=== PATIENT | male | born 1945 | race Caucasian/White ===

== ENCOUNTER 2018-05-06 09:46 | Inpatient (IN) | payer MEDICARE, MEDICAID ==
--- NOTE | 2018-05-06 11:18 | RAD ---
HISTORY: SOB COMPARISONS: None VIEWS: 1: frontal portable view of the chest at 11:05 AM FINDINGS: LINES AND TUBES: None. CARDIOMEDIASTINAL SILHOUETTE: The cardiac silhouette is enlarged. The cardiomediastinal silhouette is otherwise normal for portable technique. PLEURA: The costophrenic angles are sharp. No pleural abnormalities are noted. LUNG PARENCHYMA: The lungs are clear. ABDOMEN: The upper abdomen is clear. There is no subphrenic gas. BONES AND SOFT TISSUES: The patient is status post median sternotomy. IMPRESSION: CARDIOMEGALY. NO ACTIVE CARDIOPULMONARY DISEASE.
[2018-05-06 11:30] LABS: Hematocrit 16 % (42-52); Hemoglobin 5.2 g/dl (14.0-18.0); Mean Corpuscular HGB Conc 32 g/dl (31-36); Mean Corpuscular Hemoglobin 28 pg (27-31); Mean Corpuscular Volume 88 fL (80-94); Mean Platelet Volume 9.7 um3 (7.4-10.4); Platelet Count 393 10^3/ul (150-450); Red Blood Count 1.88 10^6/ul (4.00-5.40); Red Cell Distribution Width 21 % (10.5-15); White Blood Count 23.5 10^3/ul (3.5-10.8)
[2018-05-06 11:40] LABS: INR 4.76 (0.77-1.02)
[2018-05-06 11:41] LABS: EGFR Non-African American 50.1 (>60)
[2018-05-06] MEDS ORDERED: NS 0.9% 1000 ML* 1,000 ML IV ONE (11:50)
[2018-05-06] MEDS ORDERED: Pantoprazole IV* 40 MG IV ONE (11:50)
[2018-05-06 12:19] LABS: ABS Basophils 0.2 10^3/ul (0-0.2); ABS Eosinophils 0 10^3/ul (0-0.6); ABS Lymphocytes 1.7 10^3/ul (1.0-4.8); ABS Monocytes 1.3 10^3/ul (0-0.8); ABS Neutrophils 20.3 10^3/ul (1.5-7.7); ABS Nucleated RBC 0.1 10^3/ul; Eosinophil % 0 % (0-6); Lymphocyte % 7.1 % (25-47); Nucleated Red Blood Cells % 0.4
[2018-05-06] MEDS ORDERED: Baclofen TAB* 10 MG PO PRN (12:25)
[2018-05-06] MEDS ORDERED: traZODone TAB* 100 MG PO PRN (12:25)
[2018-05-06] MEDS ORDERED: Acetaminophen TAB* 325 MG PO PRN (12:25)
[2018-05-06] MEDS ORDERED: Albuterol 2.5 MG/3 ML NEB.SOL* (0.083%) INH PRN (12:25)
[2018-05-06] MEDS ORDERED: Levalbuterol HFA INHALER* 1 PUFF MDI INH PRN (12:25)
[2018-05-06] MEDS ORDERED: Nitroglycerin TAB 0.4 MG* 0.4 MG TAB SL PRN (12:25)
[2018-05-06] MEDS ORDERED: traMADol TAB* 50 MG PO PRN (12:25)
[2018-05-06] MEDS ORDERED: Phytonadione IV (Adult)* 10 MG/ML 1 ML AMP IV ONE (14:00)
--- NOTE | 2018-05-06 14:15 | OP ---
Operative Report - Blank - Operative Report Date of Operation: 05/06/18 Note: Central Venous Catheter (CVC, Central Line) Placement Date: 05/06/18 Time: 2:20 PM Indication: Hemodynamic monitoring/Intravenous access Attending: Robert Ruiz time-out was completed verifying correct patient, procedure, site, positioning , and special equipment if applicable. The patient was placed in a dependent position appropriate for central line placement based on the vein to be cannulated. The patients right neck as prepped and draped in sterile fashion. 1 % Lidocaine was used to anesthetize the surrounding skin area. A triple lumen 7- Gambian catheter was introduced into the the internal jugular using the Seldinger technique and under ultrasound guidance. The catheter was threaded smoothly over the guide wire and appropriate blood return was obtained. Each lumen of the catheter was evacuated of air and flushed with sterile saline. The catheter was then sutured in place to the skin and a sterile dressing applied. Perfusion to the extremity distal to the point of catheter insertion was checked and found to be adequate. Estimated Blood Loss: none The patient tolerated the procedure well and there were no complications. A chest xray was ordered to confirm placement.
--- NOTE | 2018-05-06 14:38 | RAD ---
HISTORY: central line placement COMPARISONS: May 06, 2018 at 11:05 AM VIEWS: 1: frontal portable view of the chest at 2:16 PM. The patient is obliqued to the left. FINDINGS: LINES AND TUBES: A right internal jugular venous catheter is noted with the tip overlying the cavoatrial junction. CARDIOMEDIASTINAL SILHOUETTE: The cardiac silhouette is enlarged. The cardiomediastinal silhouette is otherwise normal for portable technique. PLEURA: The costophrenic angles are sharp. No pleural abnormalities are noted. There is no appreciable pneumothorax. LUNG PARENCHYMA: The lungs are clear. ABDOMEN: The upper abdomen is clear. There is no subphrenic gas. BONES AND SOFT TISSUES: The patient is status post median sternotomy. IMPRESSION: 1. LINES AND TUBES ABOVE. 2. CARDIOMEGALY.
[2018-05-06] MEDS: Pantoprazole IV* 80 MG in NS 0.9% 250 ML* 250 ML IV SCH (14:43)
[2018-05-06] MEDS ORDERED: NS 0.9% IVPB ONE (15:13)
[2018-05-06] MEDS ORDERED: Phytonadione IV (Adult)* 10 MG/ML 1 ML AMP ONE (15:13)
[2018-05-06] MEDS ORDERED: ERYTHROMYCIN LACTOBIONATE IVPB ONE (15:13)
[2018-05-06] MEDS: PHYTONADIONE IV ONE ×2 (15:18→18:01)
[2018-05-06] MEDS: NS 0.9% IV ONE ×2 (15:18→18:01)
[2018-05-06] MEDS ORDERED: Phytonadione IV (Adult)* 10 MG in NS 0.9% 50 ML* 50 ML IV ONE (15:36)
[2018-05-06] MEDS ORDERED: Metoclopramide IV* 5 MG/ML 2 ML VIAL IV SLOW PU ONE (15:37)
[2018-05-06] MEDS ORDERED: LORazepam INJ* 2 MG/ML 1 ML VIAL ONE (15:41)
--- NOTE | 2018-05-06 16:05 | HP ---
History of Present Illness - History of Present Illness Reason for Visit: black stool History of Present Illness: 72M with htn, hld, cad s/p cabg, afib on coumadin, h/o cva with residual left sided deficit, h/o gi bleed presents with weakness and black tarry stool. The patient has been occurring for the past several days. He also has some epigastric burning. He came to the ER and was found have a hemoglobin of 5. He was started on ppi gtt and admitted to the ICU. The patient arrived on the unit and approximately 800cc of coffee ground emesis. An NG tube was placed and an addition 1200cc of coffee ground contents were aspirated from the patients stomach. A central line was placed and 6 units of prbcs were ordered to be transfused. - Past Medical History Cardiac: AFIB, CAD, HTN, Hyperlipidemia Pulmonary: COPD [employer]: CVA, Other - parkinsons disease Gastrointestinal: GI bleed - Past Surgical History Past Surgical History: CABG - Past Family History Family History: None - Past Social History Smoke: Quit Alcohol: Rare Drugs: None Lives: With Family Review of Systems - Review of Systems Gastrointestinal: Positive: Melena Musculoskeletal: Positive: Arm Pain Neurological: Positive: Weakness - Medications/Allergies Allergies/Adverse Reactions: Allergies Allergy/AdvReac Type Severity Reaction Status Date / Time No Known Allergies Allergy Verified 05/06/18 09:59 Medications: Current Medications Acetaminophen (Tylenol Tab*) 650 mg PO BID PRN PRN Reason: PAIN Albuterol (Ventolin 2.5 Mg/3 Ml Neb.Kaitlynn*) 2.5 mg INH Q6H PRN PRN Reason: SOB/WHEEZING Albuterol (Ventolin Hfa Inhaler*) 2 puff INH Q6H PRN PRN Reason: SOB/WHEEZING Atorvastatin Calcium (Lipitor*) 20 mg PO DAILY TRISTA Baclofen (Lioresal Tab*) 10 mg PO TID PRN PRN Reason: SPASMS Carbidopa/Levodopa (Sinemet 25/100 Tab(*)) 1 tab PO TID TRISTA Divalproex Sodium (Depakote Er Tab(*)) 250 mg PO BID TRISTA Donepezil HCl (Aricept Tab*) 5 mg PO QPM TRISTA Fenofibrate (Tricor(Nf)) 160 mg PO DAILY TRISTA; Protocol Pantoprazole Sodium 80 mg/ (Sodium Chloride) 250 mls @ 25 mls/hr IV Q10H TRISTA Last Admin: 05/06/18 14:43 Dose: 25 mls/hr Phytonadione 10 mg/ Sodium (Chloride) 51 mls @ 100 mls/hr IV ONCE ONE Stop: 05/06/18 16:06 Levalbuterol HCl (Xopenex Hfa Inhaler*) 2 puff INH Q4H PRN PRN Reason: SHORTNESS OF BREATH Mometasone Furoate/Formoterol Fumar (Dulera 100/5 Mdi*) 1 puff INH BID [facility] Nitroglycerin (Nitroglycerin Tab 0.4 Mg*) 0.4 mg SL Q5M PRN PRN Reason: PAIN - CHEST Pramipexole Dihydrochloride (Mirapex Tab*) 0.25 mg PO BID [facility] Exam - Exam Vital Signs: Vital Signs (72 hours) 05/06/18 05/06/18 05/06/18 09:55 10:00 10:10 Temperature 98.1 F Pulse Rate 112 110 109 Respiratory 17 19 18 Rate Blood Pressure 118/55 118/57 (mmHg) O2 Sat by Pulse 94 95 94 Oximetry 05/06/18 05/06/18 05/06/18 10:25 10:40 11:29 Temperature Pulse Rate 107 106 108 Respiratory 20 20 Rate Blood Pressure 106/75 133/57 (mmHg) O2 Sat by Pulse 95 95 95 Oximetry 05/06/18 05/06/18 05/06/18 11:30 11:38 11:45 Temperature 97.6 F Pulse Rate 112 107 108 Respiratory 20 20 19 Rate Blood Pressure 115/54 115/54 126/61 (mmHg) O2 Sat by Pulse 95 96 94 Oximetry 05/06/18 05/06/18 05/06/18 12:00 12:15 12:41 Temperature Pulse Rate 103 107 115 Respiratory 18 18 20 Rate Blood Pressure 105/61 119/60 123/58 (mmHg) O2 Sat by Pulse 95 95 95 Oximetry 05/06/18 05/06/18 05/06/18 12:43 12:45 13:00 Temperature Pulse Rate Respiratory 19 24 18 Rate Blood Pressure 123/58 125/60 115/68 (mmHg) O2 Sat by Pulse Oximetry 05/06/18 05/06/18 05/06/18 13:29 13:30 13:36 Temperature 98.8 F Pulse Rate 106 111 111 Respiratory 17 17 22 Rate Blood Pressure 113/64 110/54 110/54 (mmHg) O2 Sat by Pulse 95 94 95 Oximetry 05/06/18 05/06/18 05/06/18 13:45 14:00 14:01 Temperature Pulse Rate 109 111 108 Respiratory 20 23 20 Rate Blood Pressure 125/60 133/58 (mmHg) O2 Sat by Pulse 98 100 100 Oximetry 05/06/18 05/06/18 14:10 15:47 Temperature 97.4 F Pulse Rate 112 Respiratory 20 14 Rate Blood Pressure 123/74 (mmHg) O2 Sat by Pulse 97 Oximetry General: Alert, Oriented x3, Other - Pale, diaphoretic HEENT: Atraumatic, EOMI Lungs: Clear to auscultation Cardiovascular: Normal S1, Normal S2, No murmurs Abdomen: Normal bowel sounds Extremities: No clubbing, No cyanosis, No edema Skin: No rashes, No breakdown Neurological: Normal speech, Cranial nerves 3-12 NL Psych/Mental Status: Mental status NL Assessment/Plan - Assessment/Plan Plan: 72M with htn, hld, cad c/p cabg, afib on coumadin, h/o cva, parkinsons presents with upper gi bleed Neuro - parkinsons - c/w sinnemet when able to tolerate po - divalproex/pramipexole for tremor - mentating well CV - htn, hld, afib, cad s/p cabg - hold ac in setting of gi bleed - afib, now in rvr 2/2 hemorrage - will start beta adriano or ccb if bp tolerates pulm - copd - no wheezing on exam - oxygenating well - nebulizers q4 prn GI - upper gi bleed - serial cbc - npo - ppi gtt - ngt to low intermittent suction - GI consult - Case discussed with Dr. Bartholomew Renal - [place] 2/2 hypoperfusion from volume depletion - iv hydration - monitor i/o, daily weights Heme - symptomatic anemia - transfuse 6 units prb - transfuse 2 units ffp - serial cbc Endo - - check fs, niss Lines - RIJ TLC (05/06/18) PPx - gi/dvt Full Code Critical Care Time: 90 minutes
[2018-05-06] MEDS: Carbidopa/Levodop 25/100 MG TAB(*) PO SCH ×2 (16:09→22:23)
--- NOTE | 2018-05-06 16:32 | HP ---
CC: Dr. Murphy in [place], [place], phone number is [phone]; Dr. Rajan * HISTORY AND PHYSICAL: DATE OF ADMISSION: 05/06/18 TIME OF EVALUATION: 12:15. PRIMARY CARE PROVIDER: Dr. Murphy. CONSULTING EMERGENCY PREPAREDNESS MANAGER: Dr. Rajan. CHIEF COMPLAINT: "I'm weak." HISTORY OF PRESENT ILLNESS: Mr. Triplett is a 72-year-old male with a past medical history of coronary artery disease, status post CABG; atrial fibrillation, on anticoagulation with warfarin; hypertension; CVA x4; seizure disorder; Parkinson's; COPD; hyperlipidemia; recurrent GI bleed, who has had a GI bleed of unclear etiology for some time. On 04/22/18, he underwent an upper endoscopy and it showed a Dieulafoy lesion with spurting bleeding and stigmata of recent bleeding on the greater curvature of the stomach. Fulguration with argon plasma was unsuccessful and 1 LigaSure was successfully placed on the greater curvature of the gastric antrum. Bleeding had stopped at the end of the procedure. The patient states that couple of days after the procedure, his warfarin was resumed and he traveled from [place] to [place] to visit family. He states that he was feeling well until couple days ago when he started to experience indigestion. Yesterday, he states he had to use a lot of Tums and he also felt weak. Last night, he started to have melena again and he originally wanted to return to [place], but his encouraged him to come to the emergency room as his symptoms were worsening and he was feeling weaker and dizzy. In the emergency room, he had a CBC that showed hemoglobin of 5.2 and the hospitalist service was called for evaluation. PAST MEDICAL HISTORY: 1. Coronary artery disease, status post CABG. 2. Atrial fibrillation, on warfarin. 3. COPD. 4. GI bleed secondary to Dieulafoy lesion as described above. 5. Hypertension. 6. Parkinsonism. 7. CVA x4 with residual left hemiparesis. 8. Hypertension. 9. Hyperlipidemia. 10. Seizure disorder. PAST SURGICAL HISTORY: Status post CABG. MEDICATION LIST: As follows: 1. Acetaminophen 650 mg p.o. b.i.d. as needed for pain or fever. 2. Albuterol 2.5 mg nebulized q.6 hours p.r.n. shortness of breath. 3. Albuterol HFA 2 puffs inhaled q.6 hours p.r.n. shortness of breath. 4. Amlodipine 5 mg p.o. daily. 5. Atorvastatin 20 mg p.o. daily. 6. Baclofen 10 mg p.o. t.i.d. as needed for spasms. 7. Sinemet 25/100 one tablet p.o. t.i.d. 8. Divalproex ER 250 mg p.o. b.i.d. 9. Donepezil 5 mg p.o. q.p.m. 10. Fenofibrate 160 mg p.o. daily. 11. Breo Ellipta 1 puff inhaled daily. 12. Hydrocortisone 2.5% topical b.i.d. as needed for rash. 13. Proctofoam-HC 1% per rectum daily as needed for hemorrhoids. 14. Levalbuterol HFA 1 to 2 puffs inhaled q.4 hours p.r.n. shortness of breath. 15. Lisinopril 5 mg p.o. daily. 16. Nitroglycerin 0.4 mg sublingual q.5 minutes p.r.n. chest pain, maximum 3 doses. 17. Pantoprazole 40 mg p.o. daily. 18. Potassium gluconate 99 mg p.o. daily. 19. Mirapex 0.25 mg p.o. b.i.d. 20. Tramadol 50 mg p.o. q.6 hours as needed for pain. 21. Trazodone 100 mg p.o. at bedtime as needed for insomnia. 22. Venlafaxine ER 37.5 mg p.o. daily. 23. Multivitamin 1 tablet p.o. daily. 24. Warfarin 7.5 mg p.o. daily alternating with 5 mg. 25. Sonata 10 mg p.o. at bedtime. ALLERGIES: No known drug allergies. FAMILY HISTORY: Reviewed and noncontributory. SOCIAL HISTORY: The patient is a smoker, but quit. There is no history of alcohol or drug abuse. Surrogate decision maker is his , Joann Triplett, phone number is [phone]. REVIEW OF SYSTEMS: A 14-point review of systems was performed and all the pertinent negative and positive findings are in the HPI. PHYSICAL EXAMINATION GENERAL: The patient is an elderly male, lying in the ED stretcher, in no acute distress. VITAL SIGNS: Temperature 97.4, heart rate is 112, oxygen saturation is 97% on room air, respiratory rate is 20, blood pressure is 123/74. HEENT: Pupils are equal. Pale mucous membranes. CHEST: Breath sounds bilaterally decreased in bases. CVS: Normal S1, S2. Irregularly irregular. ABDOMEN: Obese, soft, nontender, nondistended. Bowel sounds are present. EXTREMITIES: No edema. NEURO: He is alert, oriented x3. Able to move all 4 extremities, but he has mild left hemiparesis. LABORATORY AND IMAGING DATA: The patient had a CBC that showed WBC of 23.5, hemoglobin of 5.2, hematocrit of 16, platelets of 393 with 86% neutrophils. INR is 4.7. Chemistry showed a sodium of 140, potassium of 4.6, chloride of 103 , bicarb of 26, BUN of 84, creatinine of 1.4, glucose of 168, calcium of 10.5. Total bilirubin of 0.1, AST of 7, ALT of 4, alk phos of 13. Chest x-ray showed cardiomegaly with no active cardiopulmonary disease. ASSESSMENT AND PLAN: Mr. Triplett is a 72-year-old male with a past medical history of coronary artery disease, status post CABG; paroxysmal atrial fibrillation, on warfarin; chronic obstructive pulmonary disease; cerebrovascular accident; GI bleed with recent diagnosis of Dieulafoy lesion as described above; hypertension; hyperlipidemia; seizure disorder, who presented to the emergency room with complaints of weakness and melena, found to have severe anemia. 1. Severe anemia. Secondary to upper GI bleed. I suspect the patient is bleeding from the same Dieulafoy lesion again. He will be admitted to the intensive care unit. He will receive 2 PRBCs. I am going to monitor his H and H. 2. Upper GI bleed. Suspect secondary to Dieulafoy lesion. We will obtain further records from [facility] in [place], [place]. The patient will be admitted to the intensive care unit. He will receive a Protonix drip. GI consultation was already requested with Dr. Rajan. 3. Supratherapeutic INR. Considering the magnitude of this patient's bleeding , we are going to hold his warfarin and give him FFP. The patient and his understand that holding his warfarin and reversing his INR will put him at greater risk for cerebrovascular accident, but they accepted the risk. The patient's states "this is not the first time he bleed, we have been through this before." 4. Seizure disorder. We will continue Depakote. 5. Parkinsonism. We will continue Sinemet. 6. Chronic obstructive pulmonary disease. It is stable at this time. We will continue bronchodilators, inhaled steroids. 7. Systemic inflammatory response syndrome. The patient meets SIRS criteria with tachycardia and leukocytosis, but I believe this is just a stress reaction to his significant GI bleed and does not represent an infection. 8. DVT prophylaxis. The patient has a score of 3 on the DVT Prophylaxis Risk Assessment Guide, but pharmacological prophylaxis is contraindicated. The patient will have SCDs. 9. Code status is full. TIME SPENT: Approximately 45 minutes were spent with the patient and 's interview, medical records review, physical examination to complete this admission, more than half of this time was spent [id number] with the patient and coordination of care. [id number]/[facility] #: [id number] BONIFACIO
--- NOTE | 2018-05-06 16:32 | CONS ---
GASTROENTEROLOGY CONSULTATION DATE OF CONSULTATION: 05/06/2018. REQUESTING PHYSICIAN: Dr. Lee in the emergency room. PRIMARY CARE PHYSICIAN: Sylvaintaff. The physician is in [place]. REASON FOR CONSULT: Melena. HISTORY OF PRESENT ILLNESS: Mr. Triplett is a very pleasant, 72-year-old gentleman who is up here in [facility] for the past few days and developed melena starting yesterday. He has been having an ongoing work-up for anemia while at home. He has had an EGD and colonoscopy that were nondiagnostic, and then a capsule endoscopy which revealed a Dieulafoy's lesion of the stomach. The patient then had a repeat EGD on April 22 which revealed the Dieulafoy's lesion and it was cauterized. Three days later on April 25, his Coumadin was restarted. The patient has a history of A-fib and four CVA's. The patient was doing well, feeling weak and somewhat short of breath with dyspnea on exertion until yesterday when he developed black and tarry stools. He denies any nonsteroidals, aspirin, or any other nonsteroidal anti-inflammatories. He denies any hematemesis, no bright red blood per rectum, no abdominal pain, no fevers or chills. He does experience dyspnea on exertion and shortness of breath. He is thirsty. PAST MEDICAL HISTORY: Significant for A-fib, CVA's, depression, chronic back pain, anemia, hypertension, dementia, asthma, and hypercholesterolemia. PAST SURGICAL HISTORY: Tonsillectomy and cholecystectomy. MEDICATIONS: Lipitor, Fluticasone, Norvasc, Sinemet, Depakote, Aricept, Tricor , Xopenex, Prinivil, Nitroglycerin, Protonix, Ultram, Trazodone, Ventolin, Effexor, Coumadin 10 mg alternating with 5 mg. ALLERGIES: None. FAMILY HISTORY: Noncontributory. REVIEW OF SYSTEMS: Twelve systems were reviewed. Other than that mentioned in the HPI were unremarkable. PHYSICAL EXAM: General: Elderly-appearing male lying flat in bed. Alert, oriented, pleasant, fluent, pale and weak, lethargic. Vital Signs: Temperature 97.6, blood pressure 115/54, pulse 107. HEENT: Mucus membranes are moist without lesions, ulcers or exudate. Dentition is poor. Gums are pale. Heart: Irregular rate and rhythm, tachy. Lungs: Clear to auscultation. Distant breath sounds bilaterally. Abdomen: Obese. Positive bowel sounds. Soft, nontender, nondistended. No hepatosplenomegaly, masses, rebound, or guarding. Skin: Warm, dry, and pale. LABORATORY DATA: Of note, hemoglobin 5.2, platelets 393, white count 23.5; INR 4.76; BUN 84, creatinine 1.4. ASSESSMENT AND PLAN: This is a 72-year-old gentleman on Coumadin for A-fib and CVA's who had a known Dieulafoy on April 22 that was cauterized. His INR is now 4.72. That likely is contributed to his upper GI bleeding. I would recommend we reverse his INR. He also needs PRBC's given his hemoglobin of 5.2. Once he is properly resuscitated, which will likely be by tomorrow, we can perform another upper endoscopy for further evaluation. He should be on IV Protonix drip. We will follow along closely. [id number]/[facility] #: [id number] BONIFACIO
--- NOTE | 2018-05-06 16:55 | ED ---
Eric Padilla Angela, scribed for Freddy Lee MD on 05/06/18 at 1035 . GI/ HPI - HPI Summary HPI Summary: This pt is a 72 y/o male [facility] [place] [facility] [place]/o dark stools since 2 days ago. Pt reports not feeling well since last night. He states nausea and lightheadedness this morning. Per family members, pt had a hard time getting a full deep breath in. Pt denies any pain, abd pain, chest pain. He is in town visiting from [place]. Pt is currently on Coumadin. He states that he was hospitalized a couple of weeks ago in [place] for bleeding ulcers that were clamped. Coumadin was discontinued for 3-4 days. Pt was started on Coumadin again on April 18, per . reports pt had a transfusion [address] 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 PMHx includes atrial fibrillation, open heart surgery, CVA x4 with left sided deficit, GI bleed. Pt uses a walker to ambulate at baseline. - History of Current Complaint Chief Complaint: EDGIBleed Time Seen by Provider: 05/06/18 10:30 Stated Complaint: GI BLEED Hx Obtained From: Patient Onset/Duration: Started Days Ago - 2, Still Present Timing: Lasting Days - 2 Severity: Moderate Current Severity: None Pain Intensity: 0 - denies any pain Associated Signs and Symptoms: Positive: Nausea, Black Tarry Stool, Melena, Other: - SOB. Negative: Fever Aggravating Factor(s): Nothing Alleviating Factor(s): Nothing - Allergy/Home Medications Allergies/Adverse Reactions: Allergies Allergy/AdvReac Type Severity Reaction Status Date / Time No Known Allergies Allergy Verified 05/06/18 09:59 Home Medications: Home Medications Acetaminophen TAB* [Tylenol TAB*] 650 mg PO BID PRN 05/06/18 [History Confirmed 05/06/18] Albuterol 2.5MG/3ML (0.083%)* [Ventolin 2.5 MG/3 ML NEB.ABRIL*] 2.5 mg INH Q6H PRN 05/06/18 [History Confirmed 05/06/18] Albuterol HFA INHALER* [Ventolin HFA Inhaler*] 2 puff INH Q6H PRN 05/06/18 [ History Confirmed 05/06/18] Atorvastatin* [Lipitor*] 20 mg PO DAILY 05/06/18 [History Confirmed 05/06/18] Baclofen TAB* [Lioresal TAB*] 10 mg PO TID PRN 05/06/18 [History Confirmed 05/06] Carbidopa/Levodop 25/100 MG(*) [Sinemet 25/100 TAB(*)] 1 tab PO TID 05/06/18 [ History Confirmed 05/06/18] Divalproex ER TAB(*) [Depakote ER TAB(*)] 250 mg PO BID 05/06/18 [History Confirmed 05/06/18] Donepezil TAB* [Aricept 5 MG TAB*] 5 mg PO QPM 05/06/18 [History Confirmed 05/06] Fenofibrate(NF) [Tricor(NF)] 160 mg PO DAILY 05/06/18 [History Confirmed ] Fluticasone/Vilanterol MDI(NF) [Breo Ellipta MDI (NF)] 1 puff INH DAILY [History Confirmed 05/06/18] Hydrocortisone 2.5% CREAM(NF) 1 applic TOPICAL BID PRN 05/06/18 [History Confirmed 05/06/18] Hydrocortisone/Pramoxine [Proctofoam Hc 1-1 %] 1 aer SC DAILY PRN 05/06/18 [ History Confirmed 05/06/18] Levalbuterol HFA INHALER* [Xopenex Hfa Inhaler*] 1 - 2 puff INH Q4H PRN [History Confirmed 05/06/18] Lisinopril TAB* [Prinivil TAB*] 5 mg PO DAILY 05/06/18 [History Confirmed ] Nitroglycerin TAB 0.4 MG* 0.4 mg SL Q5M PRN 05/06/18 [History Confirmed 05/06/18 ] Pantoprazole TAB (NF) [Protonix TAB (NF)] 40 mg PO DAILY 05/06/18 [History Confirmed 05/06/18] Potassium Gluconate 99 mg PO DAILY 05/06/18 [History Confirmed 05/06/18] Pramipexole TAB* [Mirapex TAB*] 0.25 mg PO BID 05/06/18 [History Confirmed 05/06] Venlafaxine EXT RELEASE CAP* [Effexor Xr CAP*] 37.5 mg PO DAILY 05/06/18 [ History Confirmed 05/06/18] Vitamin THERAPEUTIC TAB* [Theragran TAB*] 1 tab PO DAILY 05/06/18 [History Confirmed 05/06/18] Warfarin TAB(*) [Coumadin TAB(*)] 5 mg PO QPM 05/06/18 [History Confirmed ] Warfarin TAB(*) [Coumadin TAB(*)] 10 mg PO QPM 05/06/18 [History Confirmed 05/06] Zaleplon (NF) [Sonata (NF)] 10 mg PO QPM 05/06/18 [History Confirmed 05/06/18] amLODIPine TAB* [Norvasc 5 mg TAB*] 5 mg PO DAILY 05/06/18 [History Confirmed ] traMADol TAB* [Ultram*] 50 mg PO Q6HR PRN 05/06/18 [History Confirmed 05/06/18] traZODone TAB* [Desyrel TAB*] 100 mg PO BEDTIME PRN 05/06/18 [History Confirmed 05/06/18] PMH/Surg Hx/FS Hx/Imm Hx Endocrine/Hematology History: Reports: Hx Anticoagulant Therapy - Coumadin Cardiovascular History: Reports: Hx Atrial Fibrillation, Hx Coronary Artery Disease, Other Cardiovascular Problems/Disorders - open heart surgery GI History: Reports: Hx Gastrointestinal Bleed, Hx Hiatal Hernia, Hx Ulcer Neurological History: Reports: Hx CVA - Surgical History Surgery Procedure, Year, and Place: Cholecystectomy. Tonsillectomy. CABG Infectious Disease History: No Infectious Disease History: Denies: Traveled Outside the [place] in Last 30 Days - Family History Known Family History: Negative: Hypertension, Diabetes - Social History Alcohol Use: None Substance Use Type: Reports: None Smoking Status (MU): Never Smoked Tobacco Review of Systems Negative: Fever, Chills Negative: Chest Pain Positive: Shortness Of Breath Gastrointestinal: Other - Dark stools Positive: Nausea. Negative: Abdominal Pain Neurological: Other - POS: lightheadedness All Other Systems Reviewed And Are Negative: Yes Physical Exam - Summary Physical Exam Summary: Appearance: The patient is well-nourished in no acute distress and in no acute pain. Skin: The skin is warm and dry. Skin is pale. HEENT: The head is normocephalic and atraumatic. The pupils are equal and reactive. The conjunctivae are pale and without drainage. Nares are patent and without drainage. Mouth reveals moist mucous membranes and the throat is without erythema and exudate. The external ears are intact. The ear canals are patent and without drainage. The tympanic membranes are intact. Neck: the neck is supple with full range of motion and non-tender. There are no carotid bruits. There is no neck vein distension. Respiratory: Chest is non-tender. Lungs have a little wheeze. Cardiovascular: Heart is borderline tachycardic. There is no murmur or rub auscultated. There is no peripheral edema and pulses are symmetrical and equal. Abdomen: The abdomen is soft and non-tender. There are normal bowel sounds heard in all four quadrants and there is no organomegaly palpated. Musculoskeletal: There is no back tenderness noted. Extremities are non-tender with full range of motion. There is good capillary refill. There is no peripheral edema or calf tenderness elicited. Neurological: Patient is alert and oriented to person, place and time. Psychiatric: The patient has an appropriate affect and does not exhibit any anxiety or depression. Triage Information Reviewed: Yes Vital Signs On Initial Exam: Initial Vitals Temp Pulse Resp BP Pulse Ox 98.1 F 111 18 118/55 94 05/06/18 09:55 05/06/18 09:55 05/06/18 09:55 05/06/18 09:55 05/06/18 09:55 Vital Signs Reviewed: Yes Diagnostics - Vital Signs Vital Signs Temp Pulse Resp BP Pulse Ox 05/06/18 09:55 98.1 F 111 18 118/55 94 - Laboratory Lab Results: Lab Results 05/06/18 05/06/18 05/06/18 Range/Units 11:08 11:08 11:08 WBC 23.5 H (3.5-10.8) 10^3/ul RBC 1.88 L (4.00-5.40) 10^6/ul Hgb 5.2 L* (14.0-18.0) g/dl Hct 16 L (42-52) % MCV 88 (80-94) fL MCH 28 (27-31) pg MCHC 32 (31-36) g/dl RDW 21 H (10.5-15) % Plt Count 393 (150-450) 10^3/ul MPV 9.7 (7.4-10.4) um3 Neut % (Auto) 86.6 H (38-83) % Lymph % (Auto) 7.1 L (25-47) % [place] % (Auto) 5.6 (0-7) % Eos % (Auto) 0 (0-6) % Baso % (Auto) 0.7 (0-2) % Absolute Neuts (auto) 20.3 H (1.5-7.7) 10^3/ul Absolute Lymphs (auto) 1.7 (1.0-4.8) 10^3/ul Absolute Monos (auto) 1.3 H (0-0.8) 10^3/ul Absolute Eos (auto) 0 (0-0.6) 10^3/ul Absolute Basos (auto) 0.2 (0-0.2) 10^3/ul Absolute Nucleated RBC 0.1 10^3/ul Nucleated RBC % 0.4 INR (Anticoag Therapy) 4.76 H (0.77-1.02) APTT 40.2 H (26.0-36.3) seconds Sodium 140 (135-145) mmol/L Potassium 4.6 (3.5-5.0) mmol/L Chloride 103 (101-111) mmol/L Carbon Dioxide 26 (22-32) mmol/L Anion Gap 11 (2-11) mmol/L BUN 84 H (6-24) mg/dL Creatinine 1.40 H (0.67-1.17) mg/dL Est GFR ( Amer) 60.6 (>60) Est GFR (Non-Af Amer) 50.1 (>60) BUN/Creatinine Ratio 60.0 H (8-20) Glucose 168 H (70-100) mg/dL Calcium 10.5 H (8.6-10.3) mg/dL Total Bilirubin 0.10 L (0.2-1.0) mg/dL AST 7 L (13-39) U/L ALT 4 L (7-52) U/L Alkaline Phosphatase 13 L (34-104) U/L Total Protein 5.2 L (6.4-8.9) g/dL Albumin 3.3 (3.2-5.2) g/dL Globulin 1.9 L (2-4) g/dL Albumin/Globulin Ratio 1.7 (1-3) Blood Type Antibody Screen Crossmatch 05/06/18 Range/Units 11:08 WBC (3.5-10.8) 10^3/ul RBC (4.00-5.40) 10^6/ul Hgb (14.0-18.0) g/dl Hct (42-52) % MCV (80-94) fL MCH (27-31) pg MCHC (31-36) g/dl RDW (10.5-15) % Plt Count (150-450) 10^3/ul MPV (7.4-10.4) um3 Neut % (Auto) (38-83) % Lymph % (Auto) (25-47) % Denton % (Auto) (0-7) % Eos % (Auto) (0-6) % Baso % (Auto) (0-2) % Absolute Neuts (auto) (1.5-7.7) 10^3/ul Absolute Lymphs (auto) (1.0-4.8) 10^3/ul Absolute Monos (auto) (0-0.8) 10^3/ul Absolute Eos (auto) (0-0.6) 10^3/ul Absolute Basos (auto) (0-0.2) 10^3/ul Absolute Nucleated RBC 10^3/ul Nucleated RBC % INR (Anticoag Therapy) (0.77-1.02) APTT (26.0-36.3) seconds Sodium (135-145) mmol/L Potassium (3.5-5.0) mmol/L Chloride (101-111) mmol/L Carbon Dioxide (22-32) mmol/L Anion Gap (2-11) mmol/L BUN (6-24) mg/dL Creatinine (0.67-1.17) mg/dL Est GFR ( Amer) (>60) Est GFR (Non-Af Amer) (>60) BUN/Creatinine Ratio (8-20) Glucose (70-100) mg/dL Calcium (8.6-10.3) mg/dL Total Bilirubin (0.2-1.0) mg/dL AST (13-39) U/L ALT (7-52) U/L Alkaline Phosphatase (34-104) U/L Total Protein (6.4-8.9) g/dL Albumin (3.2-5.2) g/dL Globulin (2-4) g/dL Albumin/Globulin Ratio (1-3) Blood Type A Positive Antibody Screen Negative Crossmatch See Detail Result Diagrams: 05/06/18 11:08 05/06/18 11:08 Lab Statement: Any lab studies that have been ordered have been reviewed, and results considered in the medical decision making process. - Radiology Chest XR Xray Interpretation: No Acute Changes - IMPRESSION: Cardiomegaly. No active cardiopulmonary disease. Dr. Lee has reviewed this report. Radiology Interpretation Completed By: Radiologist Re-Evaluation - Re-Evaluation First Eval Re-Evaluation Time: 12:01 Comment: Dr. Rajan, GI, in to see pt. GIGU Course/Dx - Course Course Of Treatment: Mr. Triplett presented with a concern for having black bowel movements for the last couple of days. 2 weeks ago he was admitted to a hospital in [place] with an upper GI bleed and was transfused 2 units. He underwent EGD which showed an ulcer that had some kind of surgical repair. He was restarted on his Coumadin about one week ago. He is on Coumadin for atrial fibrillation. He was noted to be mildly tachycardic with otherwise normal vital signs on arrival. He was pale with pale conjunctiva. He was typed and screened and IV was initiated. Hemoglobin returned quite low at 5. His INR was also elevated at 5.9. He was ordered a unit of FFP and 2 units of PRBCs and given IV Protonix as a bolus and drip as well as normal saline. Dr. Rajan party plan salesperson for GI was contacted and came to the emergency department to evaluate the patient. And he is being admitted by the hospitalist service. - Diagnoses Provider Diagnoses: Upper GI bleed - Physician Notifications Discussed Care Of Patient With: Indu Melendrez Time Discussed With Above Provider: 11:47 Instructed by Provider To: Other - I discussed pt care with Dr. Melendrez, hospitalist, who accepted pt for admission. - Critical Care Time Critical Care Time: 30-74 min Discharge - Sign-Out/Discharge Documenting (check all that apply): Discharge/Admit/Transfer - Admit - Discharge Plan Condition: Stable Disposition: ADMITTED TO [facility] - Billing Disposition and Condition Condition: STABLE Disposition: Admitted to [facility] The documentation as recorded by the Eric zuniga Angela accurately reflects the service I personally performed and the decisions made by me, Freddy Lee MD.
[2018-05-06] MEDS ORDERED: Furosemide IV* 10 MG/ML 2 ML VIAL (20 MG) IV ONE ×2 (19:00→22:00)
[2018-05-06] MEDS ORDERED: Phytonadione IV (Adult)* 10 MG/ML 1 ML AMP SUBCUT ONE (19:00)
[2018-05-06] MEDS ORDERED: Furosemide IV* 10 MG/ML 2 ML VIAL (20 MG) ONE (19:03)
[2018-05-06] MEDS: Donepezil TAB* 5 MG PO SCH (19:05)
[2018-05-06 20:28] LABS: Hematocrit 24 % (42-52); Hemoglobin 8.1 g/dl (14.0-18.0); Mean Corpuscular HGB Conc 33 g/dl (31-36); Mean Corpuscular Hemoglobin 28 pg (27-31); Mean Corpuscular Volume 85 fL (80-94); Mean Platelet Volume 9.7 um3 (7.4-10.4); Platelet Count 268 10^3/ul (150-450); Red Blood Count 2.88 10^6/ul (4.00-5.40); Red Cell Distribution Width 18 % (10.5-15); White Blood Count 21.8 10^3/ul (3.5-10.8)
[2018-05-06 20:34] LABS: INR 1.38 (0.77-1.02)
[2018-05-06 21:23] LABS: ABS Basophils 0 10^3/ul (0-0.2); ABS Neutrophils 17.4 10^3/ul (1.5-7.7); ABS Neutrophils 18.8 10^3/ul (1.5-7.7); Monocytes % 7 % (0-7)
[2018-05-06] MEDS: Divalproex ER TAB(*) 250 MG PO SCH (22:23)
[2018-05-06] MEDS: Pramipexole TAB* 0.125 MG PO SCH (22:23)
[2018-05-06] MEDS ORDERED: Furosemide IV* 10 MG/ML 2 ML VIAL (20 MG) IV PRN (23:00)
[2018-05-07] MEDS: Pantoprazole IV* 80 MG in NS 0.9% 250 ML* 250 ML IV SCH ×2 (00:47→10:52)
[2018-05-07 05:50] LABS: Hematocrit 23 % (42-52); Hemoglobin 7.5 g/dl (14.0-18.0); Mean Corpuscular HGB Conc 34 g/dl (31-36); Mean Corpuscular Hemoglobin 28 pg (27-31); Mean Corpuscular Volume 84 fL (80-94); Mean Platelet Volume 9.8 um3 (7.4-10.4); Platelet Count 220 10^3/ul (150-450); Red Blood Count 2.67 10^6/ul (4.00-5.40); Red Cell Distribution Width 17 % (10.5-15); White Blood Count 21.1 10^3/ul (3.5-10.8)
[2018-05-07 05:52] LABS: ABS Basophils 0.1 10^3/ul (0-0.2); ABS Eosinophils 0 10^3/ul (0-0.6); ABS Lymphocytes 1.2 10^3/ul (1.0-4.8); ABS Monocytes 1.4 10^3/ul (0-0.8); ABS Neutrophils 18.5 10^3/ul (1.5-7.7); ABS Nucleated RBC 0 10^3/ul
[2018-05-07 06:11] LABS: EGFR Non-African American 69.1 (>60)
[2018-05-07 06:16] LABS: Eosinophil % 0 % (0-6); Lymphocyte % 5.8 % (25-47); Nucleated Red Blood Cells % 0.2
[2018-05-07] MEDS ORDERED: Azithromycin IV(*) 250 MG in NS 0.9% 250 ML* 250 ML IVPB ONE (08:00)
[2018-05-07] MEDS: Mometasone/Formoter 100/5 MDI INH SCH ×2 (08:55→19:54)
[2018-05-07] MEDS ORDERED: Venlafaxine EXT RELEASE CAP* 37.5 MG PO SCH (09:00)
[2018-05-07] MEDS: Carbidopa/Levodop 25/100 MG TAB(*) PO SCH ×3 (09:02→21:16)
[2018-05-07] MEDS: Atorvastatin* 20 MG TAB PO SCH (09:02)
[2018-05-07] MEDS: CMC:Fenofibrate(NF) 160 MG TAB PO SCH (09:03)
[2018-05-07] MEDS: Pramipexole TAB* 0.125 MG PO SCH ×2 (09:03→21:17)
[2018-05-07] MEDS: Divalproex ER TAB(*) 250 MG PO SCH ×2 (09:03→21:16)
--- NOTE | 2018-05-07 09:38 | PN ---
Date of Service: 05/07/18 Critical Care Services: Interval History: 72M with htn, hld, cad c/p cabg, afib on coumadin, h/o cva, parkinsons presents with upper gi bleed. Initial hgb 5. 7/10: Given 6 units prbc yesterday with hgb increase from 5 to 7. 2 more units prbc ordered this AM. Vital Signs: Temp Pulse Resp BP SpO2 FiO2 100.0 F 109 19 123/52 97 05/07/18 09:01 05/07/18 09:01 05/07/18 09:01 05/07/18 09:01 05/07/18 09:01 Physical Exam: General: Alert, Oriented x3, Other - Pale, diaphoretic HEENT: Atraumatic, EOMI Lungs: Clear to auscultation Cardiovascular: Normal S1, Normal S2, No murmurs, +tachy Abdomen: Normal bowel sounds Extremities: No clubbing, No cyanosis, No edema Skin: No rashes, No breakdown Neurological: Normal speech, Cranial nerves 3-12 NL Psych/Mental Status: Mental status NL Fluid Balance (Past 24 Hours): I= O= Net Intake & Output 05/05/18 05/06/18 05/07/18 05/08/18 06:59 06:59 06:59 06:59 Intake Total 3058 Output Total 2935 300 Balance 123 -300 Weight 102.4 kg Intake: IV Fluids 1006 LR 928 NS 78 Medicated IV 344 GEN - Pantoprazole/ 344 Protonix Oral 240 Packed Cells 1181 Fresh Frozen Plasma 287 Output: NG Tube Drainage Amount 50 Urine 325 Alonso 2410 300 Straight Cath 150 Labs: Laboratory Results - last 24 hr 05/06/18 05/06/18 05/06/18 11:08 11:08 11:08 WBC 23.5 H RBC 1.88 L Hgb 5.2 L* Hct 16 L MCV 88 MCH 28 MCHC 32 RDW 21 H Plt Count 393 MPV 9.7 Neut % (Auto) 86.6 H Lymph % (Auto) 7.1 L Randall % (Auto) 5.6 Eos % (Auto) 0 Baso % (Auto) 0.7 Absolute Neuts (auto) 20.3 H Absolute Lymphs (auto) 1.7 Absolute Monos (auto) 1.3 H Absolute Eos (auto) 0 Absolute Basos (auto) 0.2 Absolute Nucleated RBC 0.1 Immature Gran % Neutrophils % Band Neutrophils % Lymphocytes % Monocytes % Eosinophils % Basophils % Myelocytes % Nucleated RBC % 0.4 Abs Neuts (Manual) Abs Lymphs (Manual) Abs Monocytes (Manual) Absolute Eos (Manual) Abs Basophils (Manual) Normal RBC Morphology INR (Anticoag Therapy) 4.76 H APTT 40.2 H Sodium 140 Potassium 4.6 Chloride 103 Carbon Dioxide 26 Anion Gap 11 BUN 84 H Creatinine 1.40 H Est GFR ( Amer) 60.6 Est GFR (Non-Af Amer) 50.1 BUN/Creatinine Ratio 60.0 H Glucose 168 H Calcium 10.5 H Total Bilirubin 0.10 L AST 7 L ALT 4 L Alkaline Phosphatase 13 L Total Protein 5.2 L Albumin 3.3 Globulin 1.9 L Albumin/Globulin Ratio 1.7 Blood Type Antibody Screen Crossmatch Donor Unit # Post-Trans Blood Type Post-Trans JASS 05/06/18 05/06/18 05/06/18 11:08 20:09 20:09 WBC RBC Hgb Hct MCV MCH MCHC RDW Plt Count MPV Neut % (Auto) Lymph % (Auto) Randall % (Auto) Eos % (Auto) Baso % (Auto) Absolute Neuts (auto) Absolute Lymphs (auto) Absolute Monos (auto) Absolute Eos (auto) Absolute Basos (auto) Absolute Nucleated RBC Immature Gran % Neutrophils % Band Neutrophils % Lymphocytes % Monocytes % Eosinophils % Basophils % Myelocytes % Nucleated RBC % Abs Neuts (Manual) Abs Lymphs (Manual) Abs Monocytes (Manual) Absolute Eos (Manual) Abs Basophils (Manual) Normal RBC Morphology INR (Anticoag Therapy) 1.38 H APTT Sodium Potassium Chloride Carbon Dioxide Anion Gap BUN 73 H Creatinine 1.18 H Est GFR ( Amer) 73.8 Est GFR (Non-Af Amer) 61.0 BUN/Creatinine Ratio Glucose Calcium Total Bilirubin AST ALT Alkaline Phosphatase Total Protein Albumin Globulin Albumin/Globulin Ratio Blood Type A Positive Antibody Screen Negative Crossmatch See Detail Donor Unit # Post-Trans Blood Type Post-Trans JASS 05/06/18 05/06/18 05/07/18 20:09 20:19 05:30 WBC 21.8 H 21.1 H RBC 2.88 L 2.67 L Hgb 8.1 L 7.5 L Hct 24 L 23 L MCV 85 84 MCH 28 28 MCHC 33 34 RDW 18 H 17 H Plt Count 268 220 MPV 9.7 9.8 Neut % (Auto) Not Reportable 87.5 H Lymph % (Auto) Not Reportable 5.8 L Randall % (Auto) Not Reportable 6.4 Eos % (Auto) Not Reportable 0 Baso % (Auto) Not Reportable 0.3 Absolute Neuts (auto) 18.8 H 18.5 H Absolute Lymphs (auto) Not Reportable 1.2 Absolute Monos (auto) Not Reportable 1.4 H Absolute Eos (auto) Not Reportable 0 Absolute Basos (auto) Not Reportable 0.1 Absolute Nucleated RBC Not Reportable 0 Immature Gran % 6 Neutrophils % 80 Band Neutrophils % 5 Lymphocytes % 6 L Monocytes % 7 Eosinophils % 1 Basophils % 0 Myelocytes % 1 Nucleated RBC % Not Reportable 0.2 Abs Neuts (Manual) 17.4 H Abs Lymphs (Manual) 1.3 Abs Monocytes (Manual) 1.5 H Absolute Eos (Manual) 0.2 Abs Basophils (Manual) 0 Normal RBC Morphology Normal INR (Anticoag Therapy) APTT Sodium Potassium Chloride Carbon Dioxide Anion Gap BUN Creatinine Est GFR ( Amer) Est GFR (Non-Af Amer) BUN/Creatinine Ratio Glucose Calcium Total Bilirubin AST ALT Alkaline Phosphatase Total Protein Albumin Globulin Albumin/Globulin Ratio Blood Type Antibody Screen Crossmatch Donor Unit # See comments Post-Trans Blood Type A Positive Post-Trans JASS Negative 05/07/18 05:30 WBC RBC Hgb Hct MCV MCH MCHC RDW Plt Count MPV Neut % (Auto) Lymph % (Auto) Randall % (Auto) Eos % (Auto) Baso % (Auto) Absolute Neuts (auto) Absolute Lymphs (auto) Absolute Monos (auto) Absolute Eos (auto) Absolute Basos (auto) Absolute Nucleated RBC Immature Gran % Neutrophils % Band Neutrophils % Lymphocytes % Monocytes % Eosinophils % Basophils % Myelocytes % Nucleated RBC % Abs Neuts (Manual) Abs Lymphs (Manual) Abs Monocytes (Manual) Absolute Eos (Manual) Abs Basophils (Manual) Normal RBC Morphology INR (Anticoag Therapy) APTT Sodium 145 Potassium 4.6 Chloride 109 Carbon Dioxide 30 Anion Gap 6 BUN 74 H Creatinine 1.06 Est GFR ( Amer) 83.6 Est GFR (Non-Af Amer) 69.1 BUN/Creatinine Ratio 69.8 H Glucose 167 H Calcium 9.0 Total Bilirubin AST ALT Alkaline Phosphatase Total Protein Albumin Globulin Albumin/Globulin Ratio Blood Type Antibody Screen Crossmatch Donor Unit # Post-Trans Blood Type Post-Trans JASS Impression: 72M with htn, hld, cad c/p cabg, afib on coumadin, h/o cva, parkinsons presents with upper gi bleed Plan: Neuro - parkinsons with dementia - c/w sinnemet when able to tolerate po - divalproex/pramipexole/baclofen for tremor - aricept for dementia - mentating well CV - htn, hld, afib, cad s/p cabg - hold ac in setting of gi bleed - afib, now in rvr 2/2 hemorrage - will start beta adriano or ccb if bp tolerates pulm - copd - no wheezing on exam - oxygenating well - nebulizers q4 prn GI - upper gi bleed - serial cbc - npo - ppi gtt - ngt to low intermittent suction - GI consult - Case discussed with Dr. Bartholomew - plan for EGD today Renal - [place] 2/2 hypoperfusion from volume depletion - iv hydration - monitor i/o, daily weights Heme - symptomatic anemia - received 6 units prbc and 2 units ffp on 05/06 - 2 units prbc ordered this am - goal hgb 8-10 - serial cbc Endo - - check fs, niss Lines - RIJ TLC (05/06/18) PPx - gi/dvt Full Code Critical Care Time: 40 minutes
[2018-05-07] MEDS ORDERED: fentaNYL* 50 MCG/ML 2 ML VIAL (100 MCG VIAL) ONE (12:26)
[2018-05-07] MEDS ORDERED: Midazolam* 1 MG/ML 10 ML VIAL (10 MG) ONE (12:27)
[2018-05-07 13:01] LABS: Hematocrit 28 % (42-52); Hemoglobin 9.3 g/dl (14.0-18.0); Mean Corpuscular HGB Conc 34 g/dl (31-36); Mean Corpuscular Hemoglobin 28 pg (27-31); Mean Corpuscular Volume 84 fL (80-94); Mean Platelet Volume 9.8 um3 (7.4-10.4); Platelet Count 203 10^3/ul (150-450); Red Blood Count 3.29 10^6/ul (4.00-5.40); Red Cell Distribution Width 16 % (10.5-15); White Blood Count 22.3 10^3/ul (3.5-10.8)
[2018-05-07 13:51] LABS: ABS Basophils 0.1 10^3/ul (0-0.2); ABS Eosinophils 0 10^3/ul (0-0.6); ABS Lymphocytes 1.2 10^3/ul (1.0-4.8); ABS Monocytes 1.5 10^3/ul (0-0.8); ABS Neutrophils 19.5 10^3/ul (1.5-7.7); ABS Nucleated RBC 0 10^3/ul; Eosinophil % 0 % (0-6); Lymphocyte % 5.5 % (25-47); Nucleated Red Blood Cells % 0
[2018-05-07 17:39] LABS: Hematocrit 25 % (42-52); Hemoglobin 8.3 g/dl (14.0-18.0)
[2018-05-07 17:54] LABS: Hematocrit 25 % (42-52); Hemoglobin 8.3 g/dl (14.0-18.0); Mean Corpuscular HGB Conc 34 g/dl (31-36); Mean Corpuscular Hemoglobin 28 pg (27-31); Mean Corpuscular Volume 84 fL (80-94); Mean Platelet Volume 9.7 um3 (7.4-10.4); Platelet Count 175 10^3/ul (150-450); Red Blood Count 2.94 10^6/ul (4.00-5.40); Red Cell Distribution Width 16 % (10.5-15); White Blood Count 20.6 10^3/ul (3.5-10.8)
[2018-05-07 18:38] LABS: ABS Basophils 0 10^3/ul (0-0.2); ABS Eosinophils 0 10^3/ul (0-0.6); ABS Lymphocytes 1.4 10^3/ul (1.0-4.8); ABS Monocytes 1.5 10^3/ul (0-0.8); ABS Neutrophils 17.5 10^3/ul (1.5-7.7); ABS Nucleated RBC 0 10^3/ul; Eosinophil % 0 % (0-6); Nucleated Red Blood Cells % 0.2
[2018-05-07] MEDS: Donepezil TAB* 5 MG PO SCH (18:42)
[2018-05-07] MEDS: Albuterol HFA INHALER* 8 gm MDI INH PRN (19:56)
[2018-05-08] MEDS: Pantoprazole IV* 80 MG in NS 0.9% 250 ML* 250 ML IV SCH ×4 (00:42→13:55)
[2018-05-08 05:50] LABS: Hematocrit 27 % (42-52); Hemoglobin 9.3 g/dl (14.0-18.0); Mean Corpuscular HGB Conc 34 g/dl (31-36); Mean Corpuscular Hemoglobin 29 pg (27-31); Mean Corpuscular Volume 85 fL (80-94); Mean Platelet Volume 9.7 um3 (7.4-10.4); Platelet Count 147 10^3/ul (150-450); Red Blood Count 3.19 10^6/ul (4.00-5.40); Red Cell Distribution Width 16 % (10.5-15); White Blood Count 15.2 10^3/ul (3.5-10.8)
[2018-05-08 05:54] LABS: ABS Basophils 0 10^3/ul (0-0.2); ABS Eosinophils 0 10^3/ul (0-0.6); ABS Lymphocytes 1.1 10^3/ul (1.0-4.8); ABS Nucleated RBC 0 10^3/ul
[2018-05-08 05:56] LABS: INR 0.97 (0.77-1.02)
[2018-05-08 06:12] LABS: ABS Basophils 0 10^3/ul (0-0.2); Monocytes % 3 % (0-7)
[2018-05-08 06:14] LABS: EGFR Non-African American 77.4 (>60)
[2018-05-08] MEDS: Mometasone/Formoter 100/5 MDI INH SCH ×2 (07:29→20:14)
[2018-05-08] MEDS: Divalproex ER TAB(*) 250 MG PO SCH ×2 (08:36→21:36)
[2018-05-08] MEDS: Carbidopa/Levodop 25/100 MG TAB(*) PO SCH ×3 (08:36→21:36)
[2018-05-08] MEDS: Pramipexole TAB* 0.125 MG PO SCH ×2 (08:36→21:36)
[2018-05-08] MEDS: CMC:Fenofibrate(NF) 160 MG TAB PO SCH (08:36)
[2018-05-08] MEDS: Atorvastatin* 20 MG TAB PO SCH (08:36)
--- NOTE | 2018-05-08 08:39 | PRO ---
DATE: 05/07/18 REFERRING PHYSICIAN: Indu Somers.* PROCEDURE: Upper gastrointestinal endoscopy and hemostatic clipping of gastric ulcer. INDICATION: This 72-year-old man came in with massive hematemesis and melena with a BUN of 82. He was on warfarin with an INR of 4.6 for atrial fibrillation , and a history of a CVA in 2011 at the time of coronary bypass. He has had atrial fibrillation since then. Over the last 24 hours, he has received 8 units of blood, FFP and IV and subcu vitamin K, INR of 1.38 this morning, hemoglobin around 8. He has had no further vomiting. He had 1 moderate-size loose, black stool today. On 04/22/18, he had APC and clipping of a bleeding vessel in the midgastric body. The report refers to a ligature. Today, IV erythromycin was ordered, but being on back order, Reglan was given instead. ENDOSCOPIST: Dr. Bartholomew. MEDICATIONS: Midazolam 2.5, fentanyl 25. FINDINGS: He is in the ICU on 2L O2, saturation of about 100, alert, pulse of about 100. He denies any abdominal pain. His NG tube was removed. He was positioned on his side. Sedation was administered. EGD: Larynx - narrow with minimal gagging. Esophagus - easily entered. The mucosa is normal in the upper, mid and lower esophagus with EG junction at 40, snug and there are no active erosions. Stomach - small amount of splattered blood is present throughout the body. There is little bit more bloody secretions in the fundus. They were 80% lavaged out later on. Inspecting the greater curvature in the area where there have been bleeding seen several weeks ago, a small, but definite divot with an adherent bloody eschar was seen. It was highly suspicious for a bleeding source. Lavage was done elsewhere and no other erosions were seen in the stomach and no fresh blood , adherent clots or putative source. The gastric antrum was clearly quite normal. A clip was then chosen and applied to this site, 1 from a retrograde position and 1 straight on hoping to diagonally cover the opening. This appeared to be achieved. There was no induced bleeding. Duodenum - the pylorus, bulb, and second through third portions were normal. Reinspecting the clips, there were no signs of bleeding. IMPRESSION: 1. Gastric ulcer/erosion - clipped and we will maintain PPI drip and start clear liquids. 2. History of chronic GI bleeds - no other lesions seen. 3. History of heartburn - long-term PPI therapy as opposed to baking soda recommended. [id number]/CPS #: [id number] [facility]
--- NOTE | 2018-05-08 12:01 | PN ---
Progress Note - Progress Note Date of Service: 05/08/18 Note: Progress Note Critical Care 24 hour events/significant events: -s/p EGD with clipping; some black tarry stools+ ovenright but no further vomitting; stools slowly more brownish -hg stable, no further transfusions -no complaints by patient -some resp distress last night; but given lasix and improved -recieved 8-10 units prbc total yesterday Tele: nsr Vitals: Vital Signs Temp 99.0 F 05/08/18 10:00 Pulse 97 05/08/18 09:28 Resp 19 05/08/18 11:00 BP 137/96 05/08/18 10:00 Pulse Ox 96 05/08/18 09:28 Intake & Output 05/07/18 05/08/18 05/08/18 18:59 06:59 18:59 Intake Total 1220 1086 0 Output Total 1525 2425 600 Balance -305 -1339 -600 Weight 232 lb 12.93 oz Intake: IV Fluids 15 NS 15 IVPB 250 ABX - AZITHROMYCIN 250 Medicated IV 155 345 GEN - Pantoprazole/ 155 345 Protonix Oral 800 180 0 Packed Cells 561 Output: Bush 1525 2425 600 Other: Date of Last Bowel 05/08/18 05/08/18 Movement # Bowel Movements 1 1 Estimated Stool Amount Small O2/Vent: 2L sat 96%, rr 16 Infusions: heplock Medications: Acetaminophen (Tylenol Tab*) 650 mg PO BID PRN PRN Reason: PAIN Albuterol (Ventolin 2.5 Mg/3 Ml Neb.Kaitlynn*) 2.5 mg INH Q6H PRN PRN Reason: SOB/WHEEZING Albuterol (Ventolin Hfa Inhaler*) 2 puff INH Q6H PRN PRN Reason: SOB/WHEEZING Last Admin: 05/07/18 19:56 Dose: 2 puff Atorvastatin Calcium (Lipitor*) 20 mg PO DAILY [facility] Last Admin: 05/08/18 08:36 Dose: 20 mg Baclofen (Lioresal Tab*) 10 mg PO TID PRN PRN Reason: SPASMS Carbidopa/Levodopa (Sinemet 25/100 Tab(*)) 1 tab PO TID TRISTA Last Admin: 05/08/18 08:36 Dose: 1 tab Divalproex Sodium (Depakote Er Tab(*)) 250 mg PO BID [facility] Last Admin: 05/08/18 08:36 Dose: 250 mg Donepezil HCl (Aricept Tab*) 5 mg PO QPM [facility] Last Admin: 05/07/18 18:42 Dose: 5 mg Fenofibrate (Tricor(Nf)) 160 mg PO DAILY [facility]; Protocol Last Admin: 05/08/18 08:36 Dose: 160 mg Pantoprazole Sodium 80 mg/ (Sodium Chloride) 250 mls @ 25 mls/hr IV Q10H [facility] Last Admin: 05/08/18 10:59 Dose: 25 mls/hr Lactated Ringer's (Lactated Ringers 1000 Ml Bag*) 1,000 mls @ 1,000 mls/hr IV .BOLUS [facility] Last Admin: 05/06/18 17:55 Dose: 1,000 mls/hr Levalbuterol HCl (Xopenex Hfa Inhaler*) 2 puff INH Q4H PRN PRN Reason: SHORTNESS OF BREATH Mometasone Furoate/Formoterol Fumar (Dulera 100/5 Mdi*) 1 puff INH BID [facility] Last Admin: 05/08/18 07:29 Dose: 1 puff Nitroglycerin (Nitroglycerin Tab 0.4 Mg*) 0.4 mg SL Q5M PRN PRN Reason: PAIN - CHEST Pramipexole Dihydrochloride (Mirapex Tab*) 0.25 mg PO BID [facility] Last Admin: 05/08/18 08:36 Dose: 0.25 mg Physical Exam: General: awake, alert, no distress, no diaphoresis Head: normocephalic, atraumatic HEENT: no pallor, no icterus, moist mucous membranes Neck: soft, supple, no jvd, no stridor CVS: normal rate, regular, no murmur Resp: bilateral air entry, no rhales, no wheeze, no rhonchi, no acc muscle use Abdomen: soft, nontender, nondistended, bowel sounds present Ext: pulses+, warm, no edema Skin: intact, no breakdown, no dryness Neuro: awake, alert, orientedx3, moving all extremities, no gross focal deficit Labs: Laboratory Results - last 24 hr 05/06/18 05/07/18 05/07/18 11:08 12:45 17:30 WBC 22.3 H RBC 3.29 L Hgb 9.3 L 8.3 L Hct 28 L 25 L MCV 84 MCH 28 MCHC 34 RDW 16 H Plt Count 203 MPV 9.8 Neut % (Auto) 87.6 H Lymph % (Auto) 5.5 L [place] % (Auto) 6.6 Eos % (Auto) 0 Baso % (Auto) 0.3 Absolute Neuts (auto) 19.5 H Absolute Lymphs (auto) 1.2 Absolute Monos (auto) 1.5 H Absolute Eos (auto) 0 Absolute Basos (auto) 0.1 Absolute Nucleated RBC 0 Immature Gran % Neutrophils % Band Neutrophils % Lymphocytes % Monocytes % Eosinophils % Basophils % Myelocytes % Nucleated RBC % 0 Abs Neuts (Manual) Abs Lymphs (Manual) Abs Monocytes (Manual) Absolute Eos (Manual) Abs Basophils (Manual) Normal RBC Morphology Polychromasia Anisocytosis INR (Anticoag Therapy) Sodium Potassium Chloride Carbon Dioxide Anion Gap BUN Creatinine Est GFR ( Amer) Est GFR (Non-Af Amer) BUN/Creatinine Ratio Glucose Calcium Magnesium Blood Type A Positive Antibody Screen Negative Crossmatch See Detail 05/07/18 05/08/18 05/08/18 17:30 05:38 05:38 WBC 20.6 H 15.2 H RBC 2.94 L 3.19 L Hgb 8.3 L 9.3 L Hct 25 L 27 L MCV 84 85 MCH 28 29 MCHC 34 34 RDW 16 H 16 H Plt Count 175 147 L MPV 9.7 9.7 Neut % (Auto) 85.4 H Not Reportable Lymph % (Auto) 7.0 L Not Reportable [place] % (Auto) 7.4 H Not Reportable Eos % (Auto) 0 Not Reportable Baso % (Auto) 0.2 Not Reportable Absolute Neuts (auto) 17.5 H 13.0 H Absolute Lymphs (auto) 1.4 1.1 Absolute Monos (auto) 1.5 H 1.0 H Absolute Eos (auto) 0 0 Absolute Basos (auto) 0 0 Absolute Nucleated RBC 0 0 Immature Gran % 6 Neutrophils % 79 Band Neutrophils % 5 Lymphocytes % 12 L Monocytes % 3 Eosinophils % 0 Basophils % 0 Myelocytes % 1 Nucleated RBC % 0.2 Not Reportable Abs Neuts (Manual) 12.0 H Abs Lymphs (Manual) 1.8 Abs Monocytes (Manual) 0.5 Absolute Eos (Manual) 0 Abs Basophils (Manual) 0 Normal RBC Morphology Not Reportable Polychromasia 1+ Anisocytosis 1+ INR (Anticoag Therapy) Sodium 141 Potassium 3.9 Chloride 104 Carbon Dioxide 34 H Anion Gap 3 BUN 46 H Creatinine 0.96 Est GFR ( Amer) 93.7 Est GFR (Non-Af Amer) 77.4 BUN/Creatinine Ratio 47.9 H Glucose 117 H Calcium 8.6 Magnesium 1.8 L Blood Type Antibody Screen Crossmatch 05/08/18 05:38 WBC RBC Hgb Hct MCV MCH MCHC RDW Plt Count MPV Neut % (Auto) Lymph % (Auto) [place] % (Auto) Eos % (Auto) Baso % (Auto) Absolute Neuts (auto) Absolute Lymphs (auto) Absolute Monos (auto) Absolute Eos (auto) Absolute Basos (auto) Absolute Nucleated RBC Immature Gran % Neutrophils % Band Neutrophils % Lymphocytes % Monocytes % Eosinophils % Basophils % Myelocytes % Nucleated RBC % Abs Neuts (Manual) Abs Lymphs (Manual) Abs Monocytes (Manual) Absolute Eos (Manual) Abs Basophils (Manual) Normal RBC Morphology Polychromasia Anisocytosis INR (Anticoag Therapy) 0.97 Sodium Potassium Chloride Carbon Dioxide Anion Gap BUN Creatinine Est GFR ( Amer) Est GFR (Non-Af Amer) BUN/Creatinine Ratio Glucose Calcium Magnesium Blood Type Antibody Screen Crossmatch Imaging:- Assessment: 72y M pmhx of HTN, HLD, CAD s/p CABG, Afib on Warfarin, h/o CVA periop from CABG, parkinsons disease; presents with acute upper GI hemorrhage, acute blood loss anemia with elevated INR. -Acute upper GI hemorrhage; 2/2 to Gastric erosion/ulcer s/p clipping 05/07 -acute blood loss anemia -supratherapeutic INR -DANILO Afib, paroxysmal Plan: Neuro- stable, delirium prec. cont aricept. CVS- not tachy, BP stable. s/p PRBC for hemorrhage. hg stable since yesterday in 9s now. INR <1, hold further warfarin. in NSR, paroxysmal? would hold warfarin till he sees his primary head inspector and center marker about timing or whether to restart given recurrent bleeds. Resp- on 2L, no distress. cont to wean. cxr today. ID- afebrile. wbc decreasing, reactive? no abx indicated currently. GI- s/p EGD and clipping 07/08. Hg stable. cont PPI infusion, change to BID tomorrow. tolerating clear liquid, discussed with GI, advance to full liquid. hold AC for now. likely just remaining blood in GI tract moving through now. Renal- Cr improved, DANILO improved. K okay, no acidosis. no ivf. making good urine, neg balance. monitor. d/c bush Heme- hg stable 9s now. check again in AM. hold AC for now. INR <1. plt okay. Endo- fingerstick as needed Musculsk- oob to chair. Wounds- none Nutrition- full liquid diet. DVT prophylaxis: scds GI prophylaxis: PPI Central Line: right IJ Arterial Line: no Bush Cathetor: yes; d/c today Disposition: hemodyn stable, can probably transfer to medical floor. Code Status: full code Jose Hylton MD Marinator (Electronically Signed)
[2018-05-08] MEDS: Albuterol HFA INHALER* 8 gm MDI INH PRN (12:47)
[2018-05-08] MEDS: Donepezil TAB* 5 MG PO SCH (17:40)
--- NOTE | 2018-05-08 18:32 | PRO ---
DATE: 05/07/18 - ROOM #[id number] REFERRING PHYSICIAN: Dr. Indu Somers * PROCEDURE: Upper gastrointestinal endoscopy and application of 2 hemostatic clips to small proximal gastric body ulcer. INDICATION: This 72-year-old man came to the emergency room with massive coffee - ground emesis and passing black stools. His hemoglobin was found to be 5.2 and INR 4.76 and BUN 84. On 04/22/18, he had had APC treatment of an actively bleeding mid gastric vessel and placement of "a ligature". He has had some episodes of GI bleeding requiring transfusions over the last 5 or 6 years and has been on warfarin as he had a stroke following coronary bypass surgery. His is pretty good on the details, though records from back then are not available. Over the last 24 hours, he has been resuscitated and INR last night was 1.38 and hemoglobin this noontime 9.3. He has not had any emesis in the last 18 hours and has had just 1 black stool. Procedure was done in the ICU. ENDOSCOPIST: Dr. Bartholomew. MEDICATIONS: Midazolam 2.5, Fentanyl 25 with excellent cooperation, essentially no gagging. FINDINGS: He is a substantially overweight middle-aged man, in no overt distress. His abdomen is obese and nontender. EGD: Larynx - narrow, symmetric. Esophagus - easily entered and mucosa is normal in the upper, mid, and lower esophagus. EG junction normal and sung at 40. There are no erosions and no Antony's change. Stomach - flattered with coffee-ground mucoid material, though 80% of the mucosa is still seen at least in the antrum and body. Fair amount of lavage was done. No erosions or active bleeding were seen. There was a mid to proximal greater curvature ulceration corresponding to the endoscopic report of 04/22/18. There was a black flat clot over it. It was about 6 mm in size. It appeared to be the only potential source of bleeding. Lavage and suctioning improved visualization. There was no fresh blood in the fundus. Given the correspondence with the prior endoscopic finding, 2 clips were applied diagonally trying to intersect through the base of the small ulcer. Duodenum - the pylorus, bulb, and second through forth portions were normal. Reexamination of the stomach showed no fresh bleeding and the procedure was terminated. IMPRESSION: 1. Proximal gastric body ulceration - hemoclipped. 2. History of chronic GI bleeds - no additional findings present. [id number]/[facility] #: [id number] B[place]IF[place]
[2018-05-09] MEDS: Pantoprazole IV* 80 MG in NS 0.9% 250 ML* 250 ML IV SCH ×2 (01:36→10:19)
[2018-05-09] MEDS: Mometasone/Formoter 100/5 MDI INH SCH (08:29)
[2018-05-09 08:53] LABS: Hematocrit 30 % (42-52); Mean Corpuscular HGB Conc 34 g/dl (31-36); Mean Corpuscular Hemoglobin 29 pg (27-31); Mean Corpuscular Volume 86 fL (80-94); Mean Platelet Volume 9.1 um3 (7.4-10.4); Platelet Count 166 10^3/ul (150-450); Red Blood Count 3.43 10^6/ul (4.00-5.40); Red Cell Distribution Width 15 % (10.5-15); White Blood Count 11.6 10^3/ul (3.5-10.8)
[2018-05-09] MEDS: Divalproex ER TAB(*) 250 MG PO SCH (08:53)
[2018-05-09] MEDS: Pramipexole TAB* 0.125 MG PO SCH (08:53)
[2018-05-09] MEDS: Atorvastatin* 20 MG TAB PO SCH (08:53)
[2018-05-09] MEDS: CMC:Fenofibrate(NF) 160 MG TAB PO SCH (08:54)
[2018-05-09] MEDS: Carbidopa/Levodop 25/100 MG TAB(*) PO SCH ×2 (08:54→13:16)
[2018-05-09 09:07] LABS: EGFR Non-African American 90.3 (>60)
[2018-05-09 09:31] LABS: ABS Basophils 0.1 10^3/ul (0-0.2); ABS Eosinophils 0.1 10^3/ul (0-0.6); ABS Lymphocytes 1.2 10^3/ul (1.0-4.8); ABS Monocytes 0.9 10^3/ul (0-0.8); ABS Neutrophils 9.3 10^3/ul (1.5-7.7)
[2018-05-09 09:33] LABS: ABS Basophils 0 10^3/ul (0-0.2); ABS Neutrophils 9.6 10^3/ul (1.5-7.7); Monocytes % 7 % (0-7)
[2018-05-09 16:30] VITALS: BP 148/64
[2018-05-09] MEDS ORDERED: Omeprazole CAP* 20 MG PO SCH (16:30)
--- NOTE | 2018-05-10 04:47 | DS ---
CC: Dr. Murphy; Dr. Carreon; Dr. Barnes, Gastroenterology Department in [place], [place], phone number [phone]; Dr. Hylton, fish grader; Dr. Rajan from Gastroenterology; Dr. Bartholomew from Gastroenterology. * DISCHARGE SUMMARY: DATE OF ADMISSION: 05/06/18 DATE OF DISCHARGE: 05/09/18 PRIMARY CARE PROVIDER: Dr. Murphy from [place], [place]. The phone number to Dr. Murphy is [phone]. FABRICATION LEAD: Dr. Carreon from [facility] in [place], [place] , phone number [phone]. DISCHARGE DIAGNOSES: 1. Acute GI bleed due to gastric ulcer, status post upper endoscopy performed by Dr. Bartholomew on 05/07/18 and clipping of the gastric ulcer bleeding. 2. Status post a total of 10 units packed red blood cell transfusions due to acute hemorrhagic anemia secondary to gastric ulcer as mentioned above. 3. Acute kidney injury due to GI bleed, resolved. SECONDARY DIAGNOSES: 1. History of atrial fibrillation, on Coumadin. 2. History of coronary artery disease, status post coronary artery bypass grafting. 3. History of chronic obstructive pulmonary disease. 4. History of GI bleed due to Dieulafoy lesion on 04/22/18. 5. History of hypertension. 6. Parkinson's. 7. History of cerebrovascular accident x4 with residual mild left-sided weakness. The patient stated that his strokes were due to cardioembolic nature. 8. Hyperlipidemia. PROCEDURES DURING THE HOSPITAL STAY: Included upper endoscopy performed by Dr. Bartholomew and clipping of gastric ulcer on 05/07/18. MEDICATIONS AT DISCHARGE: The patient is being discontinued from Coumadin until evaluated by his primary care provider, mobile designer, as well as registered route associate in [place]. The remaining medications are unchanged and include: 1. Acetaminophen on a p.r.n. basis. 2. Albuterol inhaler on a p.r.n. basis. 3. Norvasc 5 mg daily. 4. Lipitor 20 mg daily. 5. Baclofen 10 mg t.i.d. p.r.n. 6. Carbidopa/levodopa 25/100 one tablet 3 times a day. 7. Depakote 250 mg b.i.d. 8. Aricept 5 mg daily. 9. TriCor 160 mg daily. 10. Breo Ellipta 1 inhalation daily. 11. Hydrocortisone cream 2.5% one application topically b.i.d. p.r.n. 12. Xopenex MDI 1 to 2 puffs every 4 hours p.r.n. 13. Lisinopril 5 mg daily. 14. Nitroglycerin 0.4 mg sublingually p.r.n. chest pain. 15. Protonix 40 mg daily. 16. Potassium gluconate 99 mg daily. 17. Mirapex 0.25 mg b.i.d. 18. Ultram 50 mg every 6 hours p.r.n. 19. Trazodone 100 mg at bedtime. 20. Effexor XR 37.5 mg daily. 21. Multivitamin 1 tablet daily. 22. Sonata 10 mg q.p.m. LABORATORY DATA AND STUDIES PERFORMED DURING THE HOSPITAL STAY: Included on presentation, the patient's WBC was 23.5, hemoglobin of 5.2, hematocrit of 16, and platelets of 393. On the day of discharge, the patient's white blood cell count was 11.6, hemoglobin of 10.0, hematocrit of 30, and platelets of 166. The patient's INR on presentation was 4.76. On 05/08/18, it was down to 0.97. At admission, the patient's sodium was 140, potassium 4.6, chloride 103, carbon dioxide 26, BUN 84, creatinine 1.4. On the day of discharge, the patient's sodium was 140, potassium 3.6, chloride 105, carbon dioxide 31, BUN 21, creatinine 0.84. PROCEDURES PERFORMED: Upper endoscopy performed by Dr. Bartholomew on 05/07/18, impression: "Gastric erosion/ulceration clipped. History of chronic GI bleed. No other lesions seen. History of heartburn. Long-term PPI therapy recommended." On 05/06/18, the patient had right internal jugular central venous catheter placed by Dr. Hylton from the intensive care unit. That was discontinued by the time of discharge. HOSPITALIZATION COURSE: Mikal Triplett is a 72-year-old male with history of recent GI bleed while he was on Coumadin for his chronic atrial fibrillation with history of cardioembolic strokes. The patient had an upper endoscopy at the end of March performed in [place] and his Coumadin was briefly held, but then restarted. He is visiting this area for a family reunion. He presented with GI bleed in the face of INR of 4.7. He also had at that point acute kidney injury with creatinine of 1.4. He had marked leukocytosis and his hemoglobin was 5. Over the course of the next 2 days, he underwent several blood transfusions, a total of 10 packed red blood cells were transfused. The patient also had 2 fresh frozen plasma units transfused and his anticoagulation was also reversed with vitamin K. He underwent clipping of his gastric ulcer by Dr. Bartholomew on 05/07/18. He did well after that and his hemoglobin continued to be stable with a hemoglobin at discharge of 10.0. His acute kidney injury resolved and by the time of discharge he was able to tolerate soft diet without any problems. He is going to be discharged home on no Coumadin with recommendation to follow up with his primary care provider and his mobile designer and registered route associate for further recommendations of anticoagulation. DIET AT DISCHARGE: [place] and soft. FOLLOWUP: The patient is recommended to follow up with his primary care provider and specialists in [place] as soon as possible after discharge. PHYSICAL EXAMINATION: At the time of discharge, blood pressure of 148/64, heart rate of 85 and regular, respiratory rate 22, oxygen saturation 98% on room air, temperature 99.0. General: The patient is a pleasant 72-year-old male who is in no acute distress. Alert, awake, and oriented x3. HEENT: Head : Atraumatic, normocephalic. Eyes: Pupils are equal, reactive to light and accommodation. Oropharynx is clear. Mucosa moist. Neck: Supple. No JVD. No bruits bilaterally. Cardiovascular: Regular rate and rhythm. No murmur. Respiratory: Clear to auscultation bilaterally. Abdomen: Soft, nontender. Bowel sounds are present in all 4 quadrants. Extremities: There is no edema. Pulses are +2 bilaterally. No clubbing or cyanosis. Neuro Evaluation: The patient has slight flattening of the left nasolabial fold. Mask face is noted likely due to Parkinson's. He has mild left-sided weakness in the left arm, which is chronic. The patient is being discharged with recommendations to stay in the [facility] for another day or 2 before he will be strong enough to be able to be driven back home to [place] by his . Please note that this is a short summary of the patient's hospitalization. Please refer to further medical records for details. TIME SPENT: Approximately 45 minutes was spent on the patient's discharge. [id number]/[facility] #: [id number] [place]
== END 2018-05-09 17:30 | disposition home or self-care (01) | DRG 378 ==
LOC: ED 09:46 → ICU 12:31 → MED 05-08 13:40
PROVIDERS: ADMIT Internal Medicine; ATTEND Internal Medicine
PROC: 0D9670Z Drainage of Stomach with Drainage Device, Via Natural or Artificial Opening (ICD-10-PCS; principal; 2018-05-06)
PROC: 03HY32Z Insertion of Monitoring Device into Upper Artery, Percutaneous Approach (ICD-10-PCS; 2018-05-06)
PROC: 05HM33Z Insertion of Infusion Device into Right Internal Jugular Vein, Percutaneous Approach (ICD-10-PCS; 2018-05-06)
PROC: B543ZZA Ultrasonography of Right Jugular Veins, Guidance (ICD-10-PCS; 2018-05-06)
PROC: 30233N1 Transfusion of Nonautologous Red Blood Cells into Peripheral Vein, Percutaneous Approach (ICD-10-PCS; 2018-05-06)
PROC: 30233K1 Transfusion of Nonautologous Frozen Plasma into Peripheral Vein, Percutaneous Approach (ICD-10-PCS; 2018-05-06)
PROC: 0W3P8ZZ Control Bleeding in Gastrointestinal Tract, Via Natural or Artificial Opening Endoscopic (ICD-10-PCS; 2018-05-07)
DX: K25.4 Chronic or unspecified gastric ulcer with hemorrhage (principal); D62 Acute posthemorrhagic anemia; N17.9 Acute kidney failure, unspecified; I69.354 Hemiplegia and hemiparesis following cerebral infarction affecting left non-dominant side; I25.10 Atherosclerotic heart disease of native coronary artery without angina pectoris; E78.5 Hyperlipidemia, unspecified; J44.9 Chronic obstructive pulmonary disease, unspecified; I10 Essential (primary) hypertension; T80.92XA Unspecified transfusion reaction, initial encounter; Y84.8 Other medical procedures as the cause of abnormal reaction of the patient, or of later complication, without mention of misadventure at the time of the procedure; Y92.239 Unspecified place in hospital as the place of occurrence of the external cause; G89.29 Other chronic pain; M54.9 Dorsalgia, unspecified; G20 Parkinson's disease; F02.80 Dementia in other diseases classified elsewhere, unspecified severity, without behavioral disturbance, psychotic disturbance, mood disturbance, and anxiety; I48.0 Paroxysmal atrial fibrillation; R79.1 Abnormal coagulation profile; Z95.1 Presence of aortocoronary bypass graft; Z90.49 Acquired absence of other specified parts of digestive tract
CPT/HCPCS: 36415; 71045; 80048; 80053; 82565; 83735; 84520; 85014; 85018; 85025; 85060; 85610; 85730; 86078; 86850; 86900; 86901; 86922; 86927; 87641; 93005; 94640; 99156; 99157; 99283; A9270-GY; J0456; J1940; J2060; J2250; J3010; J3430; P9017; P9040